=== PATIENT | male | born 1950 | race Caucasian/White ===

== ENCOUNTER 2016-11-17 01:24 | Emergency (ER) | payer OTHER ==
[2016-11-17] MEDS ORDERED: CATAPRES PO ONE (01:35)
[2016-11-17] MEDS ORDERED: AFRIN NASAL SPRAY NAS ONE ×2 (02:15→02:16)
[2016-11-17 02:16] LABS: MANUAL DIFF NEEDED? NO
[2016-11-17 02:20] LABS: BASO% 0.6 % (0.0-0.8); EOS# 0.19 X1000 (0.0-0.7); EOS% 2.6 % (0.0-10.0); HEMATOCRIT 30.3 % (42.0-52.0); HEMOGLOBIN 10.2 g/dL (14.0-18.0); IMM GRAN# 0.09 X1000 (0.0-0.04); IMM GRAN% 1.2 % (0.0-0.5); LYMPH# 1.59 X1000 (1.2-3.4); MCH 30.6 PG (27-31); MCHC 33.7 g/dL (33-37); MONO% 8.3 % (1.7-9.3); MPV 9.6 FL (7.4-10.4); NEUT% 65.3 % (42.2-75.2); PLT 336 X1000 (130-400); RBC 3.33 XMIL (4.7-6.1)
[2016-11-17 02:38] LABS: ALBUMIN 3.7 g/dL (3.5-5.0); CALCIUM 10.5 mg/dL (8.8-10.2); POTASSIUM 4.2 mmol/L (3.5-5.1); TOTAL BILIRUBIN 0.26 mg/dL (0.20-1.00); TOTAL PROTEIN 6.9 g/dL (6.3-8.3)
[2016-11-17] MEDS ORDERED: ROCEPHIN 1 GM/NS 50 ML IV ONE (02:51)
[2016-11-17] MEDS ORDERED: PRINIVIL PO ONE (02:52)
[2016-11-17 02:56] LABS: INR 1.18; PROTIME 12.5 Seconds (9.2-11.7); PTT 34.1 Seconds (22.0-36.0)
--- NOTE | 2016-11-17 02:57 | PROVIDER DOCUMENTATION ---
HPI-General Adult - General Source: patient - History of Present Illness -Gen Adult Nature of Presenting Problems: Pt is a 66 yom who presents to ER with CC of bilateral nosebleed. 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 denies: anxiety, arm pain, back/neck pain, chest pain, diaphoresis, dizziness, fatigue, fever/chills, nausea, swelling/mass in abdomen, syncope, weakness, trouble walking Similar Symptoms Previously?: No Recently seen or treated by another doctor?: No <Alonzo Keen - Last Filed: 11/17/16 02:52> <Evans Youssef - Last Filed: 11/17/16 03:19> - General Chief Complaint: Nose Bleed Stated Complaint: NOSE BLEEDING Time Seen by Provider: 11/17/16 01:34 Allergies/Adverse Reactions: Patient Allergies Allergy/AdvReac Type Severity Reaction Status Date / Time meperidine HCl * Allergy Mild HEADACHE Verified 11/17/16 01:39 [From Demerol] pentazocine lactate * Allergy Mild RASH Verified 11/17/16 01:39 [From Talwin] bee pollen Allergy Unknown Verified 11/17/16 02:05 clarithromycin [From Biaxin] Allergy Unknown Verified 11/17/16 02:05 IVP DYE Allergy Mild HIVES Uncoded 11/17/16 01:39 Home Medications: Home Medication List Medication Instructions Recorded Confirmed Last Taken Type Cephalexin [Keflex] 500 mg PO 4XDAY #30 capsule 11/17/16 Unknown Rx Clonidine HCl 0.1 mg PO TID #30 tablet 11/17/16 Unknown Rx Loratadine [Claritin] 10 mg PO DAILY #30 tablet 11/17/16 Unknown Rx Review of Systems - Adult - REVIEW OF SYSTEMS - ADULT Constitutional: denies: chills, fever, fatique, night sweats, weight gain, weight loss Eyes: reports: no symptoms reported Ears, Nose, Mouth & Throat: reports: epistaxis, sinus problem. denies: ear discharge, ear pain, hearing loss, nose pain, loose teeth, hoarseness, throat pain, throat swelling Cardiovascular: denies: chest pain, irregular heart rate, palpitations, poor circulation, syncope Respiratory: denies: chronic cough, cough, dyspnea on exertion, excessive sputum production, hemoptysis, pleurisy, shortness of breath, wheezing Gastrointestinal: reports: no symptoms reported Genitourinary: reports: no symptoms reported Musculoskeletal: reports: no symptoms reported Integumentary: reports: no symptoms reported Neurological: reports: no symptoms reported Psychiatric: reports: no symptoms reported Endocrine: reports: no symptoms reported Hematologic/Lymphatic: reports: no symptoms reported Allergic/Immunologic: reports: no symptoms reported All Other Systems: Reviewed and Negative <Alonzo Keen - Last Filed: 11/17/16 02:52> Past History - Adult - PAST MEDICAL HISTORY-ADULT Review of Records: reports: Nursing Assessment Review, Medications Reviewed - IMMUNIZATION STATUS Childhood Immunizations: See Nurse Assessment Flu Vaccine: See Nurse Assessment <Alonzo Keen - Last Filed: 11/17/16 02:52> Physical Exam-General - PHYSICAL EXAM-ADULT Initial Vital Signs Reviewed: Yes - CONSTITUTIONAL General Appearance: appears well, alert, mild distress. negative: no apparent distress, moderate distress, severe distress, cachetic, obese, thin, anxious, lethargic, slow to respond, obtunded, combative - HEAD, EARS, NOSE, MOUTH & THROAT HENMT: moist mucous membranes, normal ENT inspection, TMs normal, pharynx normal , other (hyperemic nasal bleeding, slow R side anterior bleed). negative: normocephalic/atraumatic - RESPIRATORY Respiratory: chest non-tender, lungs clear, normal breath sounds, no pleuratic chest pain, no respiratory distress, no accessory muscle use. negative: respiratory distress, decreased breath sounds, accessory muscle use, wheezing - CARDIOVASCULAR Cardiovascular: normal peripheral pulses, regular rate, rhythm. negative: bradycardia, tachycardia, irregularly irregular - NEUROLOGIC Neurologic: grossly normal, no motor/sensory deficits - PSYCHIATRIC Psych/Mental Status: normal mood/affect, normal thought content, normal thought process, oriented x 3 <Alonzo Keen - Last Filed: 11/17/16 02:52> Progress - PLAN OF CARE/RESULTS Progress/Plan/Lab Results: Vital Signs - 24 hr 11/17/16 01:31 Temperature 98.3 F Pulse Rate 77 Respiratory 18 Rate Blood Pressure 183/111 O2 Sat by Pulse 100 Oximetry Orders Category Date Time Status Nursing [Misc. NRSG Communication Order] DIRECTED Care 11/17/16 01:36 Active Saline Loc DIRECTED Care 11/17/16 01:35 Active CBC WITH ELECTRONIC DIFF [HEME] Stat Lab 11/17/16 02:00 Completed COMPREHENSIVE METABOLIC PANEL [CHEM] Stat Lab 11/17/16 02:00 Completed PROTIME WITH INR [COAG] Stat Lab 11/17/16 02:00 Completed PTT [COAG] Stat Lab 11/17/16 02:00 Completed TYPE & SCREEN [BBK] Stat Lab 11/17/16 02:00 Received CefTRIAXONE 1 GM/NS [Rocephin 1 gm/Ns] 50 ml Med 11/17/16 02:51 Active IV NOW Clonidine [Catapres] Med 11/17/16 01:35 Discontinued 0.2 mg PO NOW ONE LISINOpril [Prinivil] Med 11/17/16 02:52 Discontinued 10 mg PO NOW ONE Oxymetazoline Nasal [place] [Afrin Nasal [place]] Med 11/17/16 02:15 Discontinued See Dose Instructions DANO NOW ONE Oxymetazoline Nasal [place] [Afrin Nasal [place]] Med 11/17/16 02:16 Discontinued See Dose Instructions DANO NOW ONE Laboratory Tests 11/17/16 11/17/16 11/17/16 02:00 02:00 02:00 WBC 7.22 RBC 3.33 L Hgb 10.2 L Hct 30.3 L MCV 91.0 MCH 30.6 MCHC 33.7 RDW Std Deviation 13.9 Plt Count 336 MPV 9.6 Immature Gran % (Auto) 1.2 H Neut % (Auto) 65.3 Lymph % (Auto) 22.0 [place] % (Auto) 8.3 Eos % (Auto) 2.6 Baso % (Auto) 0.6 Immature Gran # (Auto) 0.09 H Neut # (Auto) 4.71 Lymph # (Auto) 1.59 Eagle # (Auto) 0.60 H Eos # (Auto) 0.19 Baso # (Auto) 0.04 PT 12.5 H INR 1.18 PTT (Actin FS) 34.1 Sodium 136 Potassium 4.2 Chloride 101 Carbon Dioxide 22 L Anion Gap 13 BUN 17 Creatinine 1.4 H Estimated GFR/1.73 m2 50 BUN/Creatinine Ratio 12 Glucose 75 Calculated Osmolality 272 Calcium 10.5 H Total Bilirubin 0.26 AST 14 ALT 12 Alkaline Phosphatase 57 Total Protein 6.9 Albumin 3.7 Globulin 3.2 Albumin/Globulin Ratio 1.2 - REASSESSMENT Reassessment #1 Time Reassessed: 03:00 Status: improving (Pt reports feling 100% better) <Alonzo Keen - Last Filed: 11/17/16 02:52> Procedures - ENT PROCEDURES Epistaxis Management: Right Clots cleared from Nasal Passages:: By Patient Blowing Nose Nasal Drops Instilled: Afrin Inspection: Otoscope Hemostatic Nasal Balloon Insertion: Right (4cc air pressure) <Alonzo Keen - Last Filed: 11/17/16 02:52> Departure - Departure Time of Disposition Order: 03:01 Certified Medical Emergency: Emergent <Alonzo Keen - Last Filed: 11/17/16 02:52> - Departure Time of Disposition Order: 03:19 Certified Medical Emergency: Emergent <Evans Youssef - Last Filed: 11/17/16 03:19> - Departure DIAGNOSIS: Hypertensive emergency, Anterior epistaxis Disposition: HOME 01 Condition: Stable Additional Instructions: Follow up with Dr. Holman to have nasal balloon removed on Saturday. ED Follow Up Instructions: You have been treated by a care provider in the Emergency Department. These instructions are being provided to you so you can have an understanding of how to care for yourself upon discharge. Upon discharge from the Emergency Department, you are responsible for making arrangements for follow-up care by a physician of your choice. Take all prescribed medications as directed. Return to the Emergency Department immediately for any new or worsening symptoms. You may call the Physician Referral phone number at [phone] to obtain a list of Physicians who are taking new patients. Prescriptions: Loratadine [Claritin] 10 mg PO DAILY #30 tablet Clonidine HCl 0.1 mg PO TID #30 tablet Cephalexin [Keflex] 500 mg PO 4XDAY #30 capsule Referrals: Wili Holman MD [STAFF PHYSICIAN] - Lourdes Kuo MD [Primary Care Provider] - Attestation - Scribe Verification/Attestation Scribe:: Alonzo Keen Acting as Scribe for:: Evans Youssef Scribe documention review:: This chart was documented by a scribe and accurately reflects the service the provider performed and the decisions made by the provider. <Alonzo Keen - Last Filed: 11/17/16 02:52> Physician Attestation
[2016-11-17 04:31] VITALS: BP 177/82
== END 2016-11-17 04:31 | disposition home or self-care (01) ==
LOC: ED 01:24
DX: R04.0 Epistaxis (principal); R09.81 Nasal congestion; I16.1 Hypertensive emergency
CPT/HCPCS: 80053; 85025; 85610; 85730; 86850; 86900; 86901; J0696